=== PATIENT | female | born 1980 | race Caucasian/White ===

== ENCOUNTER → 2016-12-16 | Outpatient (CLI) | payer BC ==
[2006-03-31 08:00] VITALS: TEMP 97.9
[~2016-12-16] MED LIST: AMOXICILLIN 8751 TAB PO; CHERATUSSIN AC120 ML PO; DOXYCYCLINE 10100 MG PO; FLAGYL500 MG PO; FLEXERIL 1010 MG/TAB PO; NO HOME MEDICATIONS; NORCO 325 MG-51 TAB PO; ORTHO TRI-CYCLE1 TAB PO; PRENATAL1 TA1 PO; TESSALON P100 MG/CAP PO
== END ==
LOC: COL.RAD 11:03
DX: M25.562 Pain in left knee (principal)

== ENCOUNTER → 2017-01-03 | Emergency (ER) | payer BC ==
[~2017-01-03] VITALS: Ht 165.1 cm; Wt 60.0 kg
[2017-01-03 21:30] VITALS: BP 151/71; TEMP 98
[2017-01-03 22:04] LABS: PH 8 (5-8); URINE APPEARANCE Hazy; URINE BACTERIA Rare /hpf; URINE BILIRUBIN Negative (NEGATIVE); URINE BLOOD Negative (NEGATIVE); URINE COLOR Yellow; URINE GLUCOSE Negative (NEGATIVE); URINE KETONE Negative (NEGATIVE); URINE RBC 0-2 /hpf; URINE UROBILINOGEN Negative (NEGATIVE); URINE WBC 0-2 /hpf
[2017-01-03 22:07] LABS: BASO % 0.4 % (0.0-2.0); EOS # 0.3 (0.0-0.7); EOS % 2.5 % (0-4.0); GRAN # 6.8 (1.4-6.5); HEMATOCRIT 43.1 % (37.0-47.0); HEMOGLOBIN 14.7 g/dl (12.5-16.0); LYMPH # 2.8 (1.2-3.4); LYMPH % 25.9 % (20.0-51.0); MEAN CELL VOLUME 85 fl (80.0-100.0); MEAN CORPUSCULAR HEMOGLOBIN 29 pg (27.0-31.0); MEAN CORPUSCULAR HGB CONC 34 g/dl (33.0-37.0); MEAN PLATELET VOLUME 8.1 fl (7.4-10.4); MONO # 0.7 (0.1-0.6); MONO % 6.9 % (1.7-9.3); PLATELET COUNT 221 K/mm3 (130-400); RED BLOOD COUNT 5.08 M/mm3 (4.10-5.30); REDCELL DISTRIBUTION WIDTH-CV 12.9 % (11.5-14.5); WHITE BLOOD COUNT 10.6 K/mm3 (4.8-10.8)
[2017-01-03 22:30] LABS: ALBUMIN 4.7 gm/dL (3.5-5.0); BILIRUBIN,TOTAL 0.5 mg/dL (0.0-1.0); CALCIUM 9.6 mg/dL (8.4-10.2); CREATININE, serum 0.7 mg/dL (0.52-1.25); POTASSIUM 3.4 mmol/L (3.4-5.0)
[2017-01-04 00:10] VITALS: PULSE 79
== END ==
LOC: COL.ER 21:28
PROVIDERS: Emergency Medicine
DX: R10.13 Epigastric pain (principal); Z32.02 Encounter for pregnancy test, result negative
CPT/HCPCS: J2765; J3010; J7030; Q9967

== ENCOUNTER 2019-12-28 23:50 | Inpatient (IN) | payer BC ==
[~2019-12-28] VITALS: Ht 152.4 cm; Wt 80.0 kg
--- NOTE | 2019-12-28 23:50 | NUR ---
Ambulatory to unit for labor assessment, accompanied by spouse. Pt reports "I'm pretty sure my water broke around noon" Oriented to room, monitor, plan of care.
[2019-12-29] VITALS (29 sets, daily range): BP systolic 103–148; BP diastolic 50–88; PULSE 61–96; TEMP 97–99
[2019-12-29] MEDS ORDERED: CEPHALEXIN500 M1 PO (00:46)
--- NOTE | 2019-12-29 01:30 | NUR ---
Pt anxious about IV start. supportive @ bedside
[2019-12-29 03:01] LABS: BASO % 0.1 % (0.0-2.0); EOS # 0.1 (0.0-0.7); EOS % 0.7 % (0-4.0); GRAN # 11.8 (1.4-6.5); GRAN % 79.4 % (42.2-75.2); HEMATOCRIT 40.2 % (37.0-47.0); HEMOGLOBIN 13.7 g/dl (12.5-16.0); LYMPH # 1.8 (1.2-3.4); LYMPH % 12.2 % (20.0-51.0); MEAN CELL VOLUME 90 fl (80.0-100.0); MEAN CORPUSCULAR HEMOGLOBIN 31 pg (27.0-31.0); MEAN CORPUSCULAR HGB CONC 34 g/dl (33.0-37.0); MEAN PLATELET VOLUME 9.6 fl (7.4-10.4); MONO # 1.1 (0.1-0.6); MONO % 7.1 % (1.7-9.3); PLATELET COUNT 180 K/mm3 (130-400); RED BLOOD COUNT 4.49 M/mm3 (4.10-5.30); REDCELL DISTRIBUTION WIDTH-CV 13.9 % (11.5-14.5)
--- NOTE | 2019-12-29 05:00 | NUR ---
Reports contractions "are getting really close and painful now that I'm awake" SVE as noted.
--- NOTE | 2019-12-29 05:25 | NUR ---
Bryson BABC[employer] TESTER into room for epidural placement. Pt to edge of bed.
--- NOTE | 2019-12-29 06:20 | NUR ---
Assumed care of patient. Rests in bed, alert. Spouse at bedside. Vag check done. Dilated to six, ninty percent effaced, zero station. Repositioned in bed.
--- NOTE | 2019-12-29 06:45 | NUR ---
0653 Vag exam done, complete. 0653 Dr. Gutiérrez called and updated on patient being complete. States will be over.
--- NOTE | 2019-12-29 07:00 | NUR ---
0717 Dr. Gutiérrez here, preps for delivery. 0721 Spontaneous delivery of baby girl by Dr. Gutiérrez. 0727 Spontaneous delivery of placenta by Dr. Gutiérrez. Repair work done. 0731 Dr. Gutiérrez uses retained placenta kit for bleeding. See physicians notes please. 0745 Methergine 0.2 mcg im given as ordered by Dr. Gutiérrez. 0754 Cytotec 200 mcg per rectum given by Dr. Gutiérrez.
--- NOTE | 2019-12-29 08:30 | NUR ---
Rests in bed, alert. Denies any needs at this time.
--- NOTE | 2019-12-29 09:15 | NUR ---
Rests in bed, alert. Eating breakfast. Denies any needs at this time.
--- NOTE | 2019-12-29 11:45 | NUR ---
Ambulates to the bathroom. Ronit-care explained and done. To room 219 via wheel chair. Assisted to bed. Denies any discomfort at this time. Oriented to room.
--- NOTE | 2019-12-29 14:30 | NUR ---
Ibuprofen 600 mg given per request and as ordered.
[2019-12-30 00:30] VITALS: BP 142/59; PULSE 74; TEMP 98.1
[2019-12-30 08:40] VITALS: BP 128/64; PULSE 79; TEMP 98.2
[2019-12-30 09:31] LABS: BASO % 0.2 % (0.0-2.0); EOS # 0.1 (0.0-0.7); EOS % 0.9 % (0-4.0); GRAN # 12.5 (1.4-6.5); GRAN % 83.5 % (42.2-75.2); LYMPH # 1.3 (1.2-3.4); LYMPH % 8.8 % (20.0-51.0); MEAN CELL VOLUME 90 fl (80.0-100.0); MEAN CORPUSCULAR HGB CONC 34 g/dl (33.0-37.0); MEAN PLATELET VOLUME 8.8 fl (7.4-10.4); MONO # 0.9 (0.1-0.6); MONO % 5.9 % (1.7-9.3); PLATELET COUNT 157 K/mm3 (130-400); RED BLOOD COUNT 3.72 M/mm3 (4.10-5.30)
[2019-12-30 09:34] LABS: HEMATOCRIT 33.4 % (37.0-47.0); MEAN CORPUSCULAR HEMOGLOBIN 30 pg (27.0-31.0)
[2019-12-30 09:37] LABS: HEMOGLOBIN 11.3 g/dl (12.5-16.0)
[2019-12-30] MEDS ORDERED: IBU600 MG PO (10:39)
--- NOTE | 2019-12-30 12:33 | NUR ---
stopped by but nothing needed at this time.
--- NOTE | 2019-12-30 15:00 | NUR ---
Discharge instructions given, pt verbalizes understanding. Bands matched and hugs tag removed. certificate being completed. 1520:Pt to personal vehicle. Carseat checked.
== END 2019-12-30 15:20 | disposition home or self-care (01) | DRG 807 ==
LOC: LDRO 23:50 → LDR 23:50 → LDRO 12-29 00:19 → LDR 12-29 00:35 → OB 12-29 11:45
PROVIDERS: Obstetrics & Gynecology; ADMIT Obstetrics & Gynecology
PROC: 10E0XZZ Delivery of Products of Conception, External Approach (ICD-10-PCS; principal; 2019-12-29)
PROC: 0HQ9XZZ Repair Perineum Skin, External Approach (ICD-10-PCS; 2019-12-29)
DX: O34.211 Maternal care for low transverse scar from previous cesarean delivery (principal); Z37.0 Single live birth; O70.0 First degree perineal laceration during delivery; O69.81X0 Labor and delivery complicated by cord around neck, without compression, not applicable or unspecified; Z3A.39 39 weeks gestation of pregnancy
CPT/HCPCS: OP; J2210; J2590; J2795; J7120